=== PATIENT | female | born 1940 | race Caucasian/White ===

== ENCOUNTER → 2020-04-25 | Day surgery (SDC) | payer MEDICARE, OTHER ==
[~2020-04-25] MED LIST: ALLOPURINOL300 MG PO; CHONDR SU A NA/HYALUR SOD 1 EACH KIT IO ONE; FENTANYL CITRATE/PF 100MCG/2 ML INJ ONE; LASIX20 MG PO; MIDAZOLAM HCL 2 MG/2 ML VIAL ONE; OMEPRAZOLE20 M1 PO; OXYBUTYNIN CHLOR5 MG PO; SINGULAIR10 MG PO
[2020-04-25 11:35] VITALS: BP 148/88
== END | disposition home or self-care (01) ==
LOC: OR 07:46
PROVIDERS: ATTEND Ophthalmology
DX: H25.11 Age-related nuclear cataract, right eye (principal); K21.9 Gastro-esophageal reflux disease without esophagitis; K29.70 Gastritis, unspecified, without bleeding; I10 Essential (primary) hypertension; M19.90 Unspecified osteoarthritis, unspecified site; F95.9 Tic disorder, unspecified; Z88.6 Allergy status to analgesic agent; Z88.7 Allergy status to serum and vaccine; Z01.812 Encounter for preprocedural laboratory examination; Z11.59 Encounter for screening for other viral diseases; Z86.718 Personal history of other venous thrombosis and embolism
CPT/HCPCS: 66984; J2250; J3010; U0002; V2632

== ENCOUNTER 2022-08-22 18:27 | Inpatient (IN) | payer MEDICARE ==
[~2022-08-22] VITALS: Ht 152.4 cm; Wt 77.1 kg
[~2022-08-22 18:27] MED LIST changes: -CHONDR SU A NA/HYALUR SOD 1 EACH KIT IO ONE; -FENTANYL CITRATE/PF 100MCG/2 ML INJ ONE; -MIDAZOLAM HCL 2 MG/2 ML VIAL ONE
[2022-08-22 19:06] LABS: BASOPHILS % 0.3 % (0.0-1.0); EOSINOPHILS # (AUTO) 0.1 (0.0-0.4); EOSINOPHILS % 1.5 % (0.0-6.0); HEMATOCRIT 44.5 % (34.2-44.1); HEMOGLOBIN 13.9 g/dL (12.0-16.0); LYMPHOCYTES # (AUTO) 0.6 (1.0-3.2); LYMPHOCYTES % 10.5 % (18.0-39.1); MEAN CORPUSCULAR HEMOGLOBIN 31.2 pg (28-32); MEAN CORPUSCULAR HGB CONC 31.2 g/dL (31-35); MEAN CORPUSCULAR VOLUME 99.8 fL (81-99); MONOCYTES # (AUTO) 0.4 (0.2-0.8); MONOCYTES % 5.9 % (4.4-11.3); NEUTROPHILS # (AUTO) 4.8 (2.1-6.9); NEUTROPHILS % 81.5 % (38.7-80.0); PLATELET COUNT 152 x10e3/uL (140-360); RED BLOOD COUNT 4.46 x10e6/uL (3.6-5.1); RED CELL DISTRIBUTION WIDTH 12.9 % (11.7-14.4)
[2022-08-22 19:55] LABS: ALBUMIN 3.7 g/dL (3.5-5.0); ALBUMIN/GLOBULIN RATIO 0.9 (0.8-2.0); ANION GAP 17.8 mmol/L (8-16); CALCIUM 9.4 mg/dL (8.4-10.2); CREATININE, SERUM 0.92 mg/dL (0.57-1.11); POTASSIUM 3.8 mmol/L (3.5-5.1)
[2022-08-22] MEDS ORDERED: ONDANSETRON HCL INJ 2MG/ML 2ML 2 MG/ML VIAL IV PRN (21:00)
[2022-08-22] MEDS: HYDRALAZINE HCL 20 MG/ML VIAL IV PRN (21:42)
[2022-08-23] VITALS (9 sets, daily range): BP systolic 141–170; BP diastolic 59–90
[2022-08-23 05:16] LABS: BASOPHILS % 0.4 % (0.0-1.0); EOSINOPHILS # (AUTO) 0.1 (0.0-0.4); EOSINOPHILS % 1.2 % (0.0-6.0); HEMATOCRIT 38.1 % (34.2-44.1); HEMOGLOBIN 12.8 g/dL (12.0-16.0); LYMPHOCYTES # (AUTO) 0.8 (1.0-3.2); LYMPHOCYTES % 14.8 % (18.0-39.1); MEAN CORPUSCULAR HEMOGLOBIN 31.4 pg (28-32); MEAN CORPUSCULAR HGB CONC 33.6 g/dL (31-35); MEAN CORPUSCULAR VOLUME 93.4 fL (81-99); MONOCYTES # (AUTO) 0.5 (0.2-0.8); MONOCYTES % 8.9 % (4.4-11.3); NEUTROPHILS # (AUTO) 3.8 (2.1-6.9); NEUTROPHILS % 74.1 % (38.7-80.0); PLATELET COUNT 149 x10e3/uL (140-360); RED BLOOD COUNT 4.08 x10e6/uL (3.6-5.1); RED CELL DISTRIBUTION WIDTH 12.9 % (11.7-14.4)
[2022-08-23 05:39] LABS: ALBUMIN/GLOBULIN RATIO 0.8 (0.8-2.0); ANION GAP 13.9 mmol/L (8-16); CALCIUM 8.8 mg/dL (8.4-10.2); CREATININE, SERUM 0.82 mg/dL (0.57-1.11); POTASSIUM 3.9 mmol/L (3.5-5.1)
[2022-08-23] MEDS ORDERED: VITAMIN D3 PO (15:21)
[2022-08-23] MEDS ORDERED: CALCIUM + VIT D3 PO (15:21)
[2022-08-24] VITALS (7 sets, daily range): BP systolic 91–160; BP diastolic 60–83
[2022-08-24] MEDS ORDERED: FUROSEMIDE 20 MG TAB PO SCH (14:00)
[2022-08-24] MEDS: FUROSEMIDE 20 MG TAB PO SCH (16:17)
[2022-08-24] MEDS: PANTOPRAZOLE SOD 40 MG TABEC PO SCH (20:35)
[2022-08-24] MEDS: ALLOPURINOL 300 MG TAB PO SCH (20:35)
[2022-08-25] VITALS (7 sets, daily range): BP systolic 110–182; BP diastolic 56–102
[2022-08-25] MEDS: HYDRALAZINE HCL 20 MG/ML VIAL IV PRN (04:10)
[2022-08-25 07:15] LABS: BASOPHILS % 0.5 % (0.0-1.0); EOSINOPHILS # (AUTO) 0.3 (0.0-0.4); EOSINOPHILS % 4.1 % (0.0-6.0); HEMATOCRIT 41.2 % (34.2-44.1); HEMOGLOBIN 13.3 g/dL (12.0-16.0); LYMPHOCYTES # (AUTO) 1.6 (1.0-3.2); LYMPHOCYTES % 26.2 % (18.0-39.1); MEAN CORPUSCULAR HEMOGLOBIN 30.9 pg (28-32); MEAN CORPUSCULAR HGB CONC 32.3 g/dL (31-35); MEAN CORPUSCULAR VOLUME 95.6 fL (81-99); MONOCYTES # (AUTO) 0.6 (0.2-0.8); MONOCYTES % 10.5 % (4.4-11.3); NEUTROPHILS # (AUTO) 3.6 (2.1-6.9); NEUTROPHILS % 58.4 % (38.7-80.0); PLATELET COUNT 152 x10e3/uL (140-360); RED BLOOD COUNT 4.31 x10e6/uL (3.6-5.1); RED CELL DISTRIBUTION WIDTH 11.9 % (11.7-14.4)
[2022-08-25 07:58] LABS: ANION GAP 14.8 mmol/L (8-16); CALCIUM 8.8 mg/dL (8.4-10.2); CREATININE, SERUM 0.84 mg/dL (0.57-1.11); POTASSIUM 3.8 mmol/L (3.5-5.1)
[2022-08-25] MEDS: FUROSEMIDE 20 MG TAB PO SCH (09:20)
[2022-08-25] MEDS: POTASSIUM CHLORIDE 10MEQ EA PO SCH (09:20)
[2022-08-25] MEDS: LISINOPRIL 2.5 MG TAB PO SCH (09:20)
[2022-08-25] MEDS: ALLOPURINOL 300 MG TAB PO SCH (20:34)
[2022-08-25] MEDS: PANTOPRAZOLE SOD 40 MG TABEC PO SCH (20:34)
[2022-08-26] VITALS (8 sets, daily range): BP systolic 106–185; BP diastolic 61–84
[2022-08-26 05:42] LABS: BASOPHILS % 0.4 % (0.0-1.0); EOSINOPHILS # (AUTO) 0.2 (0.0-0.4); EOSINOPHILS % 2.4 % (0.0-6.0); HEMATOCRIT 40.8 % (34.2-44.1); HEMOGLOBIN 13.8 g/dL (12.0-16.0); LYMPHOCYTES # (AUTO) 2.6 (1.0-3.2); LYMPHOCYTES % 32.6 % (18.0-39.1); MEAN CORPUSCULAR HEMOGLOBIN 31.1 pg (28-32); MEAN CORPUSCULAR HGB CONC 33.8 g/dL (31-35); MEAN CORPUSCULAR VOLUME 91.9 fL (81-99); MONOCYTES # (AUTO) 0.9 (0.2-0.8); MONOCYTES % 10.9 % (4.4-11.3); NEUTROPHILS # (AUTO) 4.2 (2.1-6.9); NEUTROPHILS % 53.3 % (38.7-80.0); PLATELET COUNT 170 x10e3/uL (140-360); RED BLOOD COUNT 4.44 x10e6/uL (3.6-5.1); RED CELL DISTRIBUTION WIDTH 12.5 % (11.7-14.4)
[2022-08-26 06:07] LABS: ANION GAP 13.8 mmol/L (8-16); CALCIUM 9.1 mg/dL (8.4-10.2); CREATININE, SERUM 0.85 mg/dL (0.57-1.11); POTASSIUM 3.8 mmol/L (3.5-5.1)
[2022-08-26] MEDS: LISINOPRIL 2.5 MG TAB PO SCH (08:39)
[2022-08-26] MEDS: FUROSEMIDE 20 MG TAB PO SCH (08:39)
[2022-08-26] MEDS: POTASSIUM CHLORIDE 10MEQ EA PO SCH (08:40)
[2022-08-26 09:49] LABS: BAND NEUTROPHILS % (MANUAL) 1 %; EOSINOPHILS % (MANUAL) 3 % (0-7); LYMPHOCYTES % (MANUAL) 38 % (19-48); MONOCYTES % (MANUAL) 6 % (3.4-9.0); NEUTROPHILS % (MANUAL) 48 % (40-74); PLATELET ESTIMATE ADEQUATE; PLATELET MORPHOLOGY COMMENT NORMAL; RBC MORPHOLOGY COMMENT NORMAL
[2022-08-26] MEDS ORDERED: ONDANSETRON HCL 4 MG ORAL DISINTEGRATING TAB PO PRN (13:45)
[2022-08-26] MEDS: PANTOPRAZOLE SOD 40 MG TABEC PO SCH (21:00)
[2022-08-26] MEDS: ALLOPURINOL 300 MG TAB PO SCH (21:00)
[2022-08-27 01:13] VITALS: BP 139/62
[2022-08-27 06:13] VITALS: BP 136/59
[2022-08-27 08:21] VITALS: BP 113/61
[2022-08-27 08:43] VITALS: BP 113/61
[2022-08-27] MEDS: LISINOPRIL 2.5 MG TAB PO SCH (09:20)
[2022-08-27] MEDS: FUROSEMIDE 20 MG TAB PO SCH (09:20)
[2022-08-27] MEDS: POTASSIUM CHLORIDE 10MEQ EA PO SCH (09:20)
== END 2022-08-27 11:35 | disposition home health service (06) | DRG 555 ==
LOC: ER 18:34 → ERHOLD 20:56 → MED/SURG3 23:11 → OBSVTOIN 08-24 14:54
PROC: 8E0ZXY6 Isolation (ICD-10-PCS; principal; 2022-08-22)
DX: M79.662 Pain in left lower leg (principal); U07.1 COVID-19; I10 Essential (primary) hypertension; E66.09 Other obesity due to excess calories; Z68.33 Body mass index [BMI] 33.0-33.9, adult; M79.661 Pain in right lower leg; M54.9 Dorsalgia, unspecified
CPT/HCPCS: 36415; 71045; 73521; 80048; 80053; 83880; 85025; 85651; 86140; 93925; 93970; 99251; 99284; G0378; J0360; J2405